=== PATIENT | female | born 1980 | race Caucasian/White ===

== ENCOUNTER 2018-02-17 11:36 | Emergency (ER) | payer OTHER ==
[2018-02-17] MEDS ORDERED: HYDROcodone/Acetaminophen 10/325 mg Tablet ONE (11:58)
--- NOTE | 2018-02-17 12:18 | RAD ---
THREE VIEW LEFT ANKLE: Clinical history: Injury, pain. FINDINGS: Mortise is intact. There is focal soft tissue swelling in the lateral aspect of the left ankle. No di screte fracture is seen. There is a subtle area of sclerosis at the distal tibia which likely represe nts a bone island. IMPRESSION: Prominent focal soft tissue at the lateral left ankle without underlying fracture. Correlate clinical ly. As necessary, short term imaging follow up may be obtained to exclude an occult injury. POS: NIDHI
== END 2018-02-17 12:20 | disposition home or self-care (01) ==
LOC: ERS 11:36
DX: S93.401A Sprain of unspecified ligament of right ankle, initial encounter (principal); E10.9 Type 1 diabetes mellitus without complications; E03.9 Hypothyroidism, unspecified; F32.9 Major depressive disorder, single episode, unspecified; F17.200 Nicotine dependence, unspecified, uncomplicated; W17.2XXA Fall into hole, initial encounter

== ENCOUNTER 2019-02-18 01:10 | Observation (INO) | payer BC, OTHER ==
[2019-02-18 03:42] LABS: #Basophils 0.1 thou/uL (0.0-0.2); #Eosinphils 0.5 thou/uL (0.0-0.7); #Monocytes 1.1 thou/uL (0.11-0.59); #Neutrophils 9.8 thou/uL (1.40-6.50); %Basophils 0.7 % (0.0-1.0); %Lymphocytes 30.1 % (21.0-51.0); %Monocytes 6.9 % (0.0-10.0); %Neutrophils 59.3 % (42.0-75.0); Hemoglobin 12.4 g/dL (12.0-16.0); Mean Corpuscular Hemoglobin 28.3 pg (27.0-31.0); Mean Corpuscular Volume 85.7 fL (78.0-98.0); Mean Platelet Volume 10.1 fL (7.4-10.4); Platelet Count 258 thou/uL (130-400); Red Blood Cell (RBC) Count 4.39 mill/uL (4.20-5.40); White Blood Cell (WBC) Count 16.5 thou/uL (4.8-10.8)
[2019-02-18 04:02] LABS: ALT (SGPT) 14 U/L (8-55); AST (SGOT) 14 U/L (5-34); Albumin 4.1 g/dL (3.5-5.0); Alkaline Phosphatase 84 U/L (40-150); Anion Gap 14 mmol/L (10-20); BUN (Urea Nitrogen) 12 mg/dL (7.0-18.7); Bilirubin, Total 0.3 mg/dL (0.2-1.2); Calc. Creatinine Clearance 0 mL/min (70-130); Calcium 9.2 mg/dL (7.8-10.44); Carbon Dioxide 20 mmol/L (22-29); Chloride 105 mmol/L (98-107); Estimated GFR-MDRD Greater than 90; Globulin 3.3 g/dL (2.4-3.5); Glucose 124 mg/dL (70-105); Potassium 3.8 mmol/L (3.5-5.1); Protein, Total 7.4 g/dL (6.0-8.3); Sodium 135 mmol/L (136-145)
[2019-02-18 04:05] LABS: Bilirubin Negative (Negative); Blood, Urine Negative (Negative); Clarity CLEAR (Clear); Glucose, Urine (Dipstick) Negative (Negative); Leukocyte Negative (Negative); Nitrite Negative (Negative); Protein, Urine (Dipstick) Negative (Neg-Trace); Specific Gravity, Urine 1.004 (1.002-1.036); Urobilinogen 0.2 mg/dL (0.2-1.0)
--- NOTE | 2019-02-18 05:35 | PDOC.FPRHP ---
- History of Present Illness Chief Complaint: abd pain History of Present Illness: 38 yo F with PMH of DM presents for abd pain and skin rash. 4 days ago, pt noticed a "pimple" on her abdomen that she tried to "pop," was unable to remove any fluid. The spot grew and her pain worsened, and now she has a rash on her abdomen. Reports fever today of 100.5. Patient reports she has been sitting in the tub and drinking a lot of energy drinks for work, and that she has not been drinking enough water. Reports headache earlier that has resolved, generalized weakness, and occasional constipation. Reports reflux symptoms, and an external hemorrhoid that occasionally bleeds. In ED, pt was tachycardic. Febrile at home. WBC elevated. Vanc, ceftriaxone, 1 L NS. Bl/u cx. UA neg. Bedside I&D performed, drain in place. Morphine, toradol. - Allergies/Adverse Reactions Allergies Allergy/AdvReac Type Severity Reaction Status Date / Time No Known Allergies Allergy Verified 04/03/15 15:55 - Home Medications Medication Instructions Recorded Confirmed Type Insulin Glargine,Hum.Rec.Anlog 40 unit SQ BID 04/03/15 02/18/19 History [Lantus Solostar] Insulin Regular [HumuLIN R Vial] 0 units SC ASDIR 04/03/15 02/18/19 History Levothyroxine Sodium 25 mcg PO DAILY 04/03/15 02/18/19 History Insulin Glargine,Hum.Rec.Anlog 40 unit SQ BID #0 pen 04/04/15 02/18/19 Rx [Lantus Solostar] metFORMIN [Glucophage] 500 mg PO QAM-WM #0 tab 04/04/15 02/18/19 Rx - History PMHx: DM2, hypothyroid, depression, GERD PSHx: tubal ligation, wisdom teeth, cholecystectomy, CSx1 FHx: no reported sick contacts Social: <1 drink/week, +marijuana use, 1 cig/week - Review of Systems General: reports: fever/chills, fatigue Eyes: denies: eye pain, vision changes ENT: denies: nasal congestion, rhinorrhea Respiratory: denies: cough, congestion, shortness of breath Cardiovascular: denies: chest pain, palpitation, edema Gastrointestinal: reports: constipation. denies: nausea, vomiting, diarrhea, abdominal pain, GI bleeding Genitourinary: denies: dysuria, other (hematuria) Skin: reports: rashes, lesions (abdomen) Musculoskeletal: reports: pain (legs bilat), tenderness Neurological: reports: weakness (generalized). denies: syncope, seizure Psychological: reports: anxiety, depression - Vital signs BP: [144/88] HR: [99] RR: [18] Tmax: [101.5] Pox: [99]% on [RA] Wt: [129 kg] - Physical Exam Constitutional: NAD, awake, alert and oriented HEENT: normocephalic and atraumatic, PERRLA, EOMI, conjunctiva clear, MMM, oropharynx clear Neck: supple, no LAD Heart: RRR, normal S1/S2, no murmurs/rubs/gallops, pulses present Lungs: CTAB, no respiratory distress, good air movement, no rales/rhonchi, no wheezing Abdomen: soft, bowel sounds present, other (approx 20 cm by 10 cm erythematous rash over abdomen, with induration of about 4x3 cm s/p incision and drainage with drain in place) Musculoskeletal: normal structure, normal tone Neurological: no focal deficit, CN II-XII intact Skin: other (see abde) Heme/Lymphatic: no unusual bruising or bleeding Psychiatric: normal mood and affect, good judgment and insight, intact recent and remote memory FMR H&P: Results - Labs Result Diagrams: 02/18/19 03:23 02/18/19 03:23 Lab results: WBC 16.5 thou/uL (4.8-10.8) H 02/18/19 03:23 Hgb 12.4 g/dL (12.0-16.0) 02/18/19 03:23 Hct 37.6 % (36.0-47.0) 02/18/19 03:23 MCV 85.7 fL (78.0-98.0) 02/18/19 03:23 Plt Count 258 thou/uL (130-400) 02/18/19 03:23 Neutrophils % 59.3 % (42.0-75.0) 02/18/19 03:23 Sodium 135 mmol/L (136-145) L 02/18/19 03:23 Potassium 3.8 mmol/L (3.5-5.1) 02/18/19 03:23 Chloride 105 mmol/L (98-107) 02/18/19 03:23 Carbon Dioxide 20 mmol/L (22-29) L 02/18/19 03:23 BUN 12 mg/dL (7.0-18.7) 02/18/19 03:23 Creatinine 0.70 mg/dL (0.6-1.1) 02/18/19 03:23 Glucose 124 mg/dL (70-105) H 02/18/19 03:23 Calcium 9.2 mg/dL (7.8-10.44) 02/18/19 03:23 Total Bilirubin 0.3 mg/dL (0.2-1.2) 02/18/19 03:23 AST 14 U/L (5-34) 02/18/19 03:23 ALT 14 U/L (8-55) 02/18/19 03:23 Alkaline Phosphatase 84 U/L (40-150) 02/18/19 03:23 Serum Total Protein 7.4 g/dL (6.0-8.3) 02/18/19 03:23 Albumin 4.1 g/dL (3.5-5.0) 02/18/19 03:23 Urine Ketones Negative mg/dL (Negative) 02/18/19 03:45 Urine Blood Negative (Negative) 02/18/19 03:45 Urine Nitrite Negative (Negative) 02/18/19 03:45 Ur Leukocyte Esterase Negative (Negative) 02/18/19 03:45 FMR H&P: A/P - Problem List (1) Sepsis Current Visit: Yes Status: Acute Code(s): A41.9 - SEPSIS, UNSPECIFIED ORGANISM (2) Abscess Current Visit: Yes Status: Acute Code(s): L02.91 - CUTANEOUS ABSCESS, UNSPECIFIED (3) Cellulitis Current Visit: Yes Status: Acute Code(s): L03.90 - CELLULITIS, UNSPECIFIED (4) GERD (gastroesophageal reflux disease) Current Visit: Yes Status: Chronic Code(s): K21.9 - GASTRO-ESOPHAGEAL REFLUX DISEASE WITHOUT ESOPHAGITIS (5) Hypothyroidism Current Visit: No Status: Chronic Code(s): E03.9 - HYPOTHYROIDISM, UNSPECIFIED (6) Type 2 diabetes mellitus Current Visit: No Status: Chronic (7) Tobacco abuse Current Visit: Yes Status: Chronic Code(s): Z72.0 - TOBACCO USE (8) Marijuana abuse Current Visit: Yes Status: Chronic Code(s): F12.10 - CANNABIS ABUSE, UNCOMPLICATED - Plan Sepsis 2/2 Abdominal Abscess and Cellulitis -Over abdomen, worsening for past 4 days -S/p I&D 02/18, sent for cx -s/p vanc and rocephin, continue Vanc and Zosyn -Bl cx, ux pending. UA neg. -s/p 3 L NS, MIVF @ 150 NS DM2 -Hyperglycemia protocol -Continue home novolin 70/30 -BHB wnl, no anion gap; not in DKA Hypothyroid -unknown home dose, okay to hold for brief hospital stay Depression -unknown home dose, ask pt if she can call home to get correct dose Marijuana abuse -behavioral school counselors cessation, aware Tobacco abuse -behavioral school counselors cessation, aware Dispo: admit to medical Diet: CC DVT ppx: lovenox GI ppx: famotidine PCP: TAMP Code:FULL FMR H&P: Upper Level - Pertinent history Pt is a 38 y/o F with DM who presents for abdominal wound. States she had a bump on her belly since Tue and she tried to pop and it became more red as the day went along. Not improving. Associated dehydration, diabetic neuropathy pain in her feet, and fatigue. In ED, she is standing and denies pain. S/p 1L IVF in ED and Vancomyicn and Rocephin have been given. Abscess drained serosanguious fluid and purulent drainage. - Pertinent findings GEN: NAD, appears well ENT: MM dry, cap refill <2sec RESP: Lungs CTAB, no wheezes CARDIO: RRR, NO MRG SKIN: abscess with bandage overlying and blood on bandage. Purulence seen. Outline of erythema visualized but erythema already resolved. Abd: No R/G, morbidly obese - Plan Date/Time: 02/18/19 4735 Ramses Cort[place], have evaluated this patient and agree with findings/plan as outlined by credit intern resident. Pertinent changes/additions are listed here. 1. Abscess with Surrounding Cellulitis - Mildy tachycardic with leukocytosis. Improving with IVF 30ml/kg. On Vanc and Pip/Tazo. Meets SIRS criteria with tachycardia and fever, but improving VS. Continue wound care and paking of wound. 2. DMT2 - Uncontrolled outpatient. Will resume home dosing and SSI. Will need close control for proper wound healing. 3. GERD - Dietary control. H2 manjinder PRN. Addendum - Attending - Attending Attestation Date/Time: 02/18/19 1216 I personally evaluated the patient and discussed the management with Dr. Opal Wilson /Albino and H&P repeated by me. I agree with the History, Examination, Assessment and Plan documented above with any addition or exceptions noted below. 38 y/o F with PMH of uncontrolled T2DM who presents with right lower abdominal pain, erythema consisted with cellulitis and abscess. S/P I&D in ER and cx sent. On Vanc/Zosyn to cover MRSA and pseudomonas- deescalate as cultures return. Tight control of sugars with home insulin + SSI.
[2019-02-18] MEDS ORDERED: Acetaminophen 500 MG TAB PO PRN (06:35)
[2019-02-18] MEDS ORDERED: Dextrose 50% Abboject 50 ML SYRINGE SLOW IVP PRN (06:41)
[2019-02-18] MEDS ORDERED: Senokot S 8.6-50 MG TAB PO PRN (06:41)
[2019-02-18] MEDS ORDERED: Enoxaparin Sodium 40 MG/0.4 ML SYRINGE SC SCH (06:41)
[2019-02-18] MEDS ORDERED: Bisacodyl 5 MG TAB PO PRN (06:41)
[2019-02-18] MEDS ORDERED: Dextrose 5% in Water 1,000 ML IV PRN (06:41)
[2019-02-18] MEDS: Sodium Chloride 0.9% 1,000 ML IV SCH ×5 (06:47→22:05)
[2019-02-18 07:00] VITALS: BMI 46.7
[2019-02-18] MEDS: Piperacillin/Tazobactam 4.5 GM in Sodium Chloride 0.9% 100 ML IVPB SCH ×4 (07:57→23:57)
[2019-02-18] MEDS ORDERED: VANCOMYCIN IVPB PRN (08:10)
[2019-02-18] MEDS: Famotidine 20 MG TAB PO SCH ×2 (09:11→19:41)
[2019-02-18] MEDS: HumuLIN 70/30 (300 UNITS/3 ML VIAL) SC SCH ×2 (10:02→16:41)
[2019-02-18] MEDS: Ibuprofen 800 MG TAB PO PRN ×2 (10:02→17:12)
[2019-02-18] MEDS: HumaLOG 300 UNITS/3 ML VIAL SC PRN (12:53)
[2019-02-18] MEDS ORDERED: Vancomycin HCl 1.25 GM in Sodium Chloride 0.9% 250 ML 300 ML IVPB SCH (21:00)
[2019-02-18] MEDS ORDERED: Ketorolac Tromethamine 30 MG/ML VIAL IVP SCH (21:30)
[2019-02-19] MEDS: Ibuprofen 800 MG TAB PO PRN ×2 (00:48→20:30)
[2019-02-19] MEDS ORDERED: Melatonin 3 MG TAB PO PRN (02:01)
[2019-02-19] MEDS ORDERED: traMADol HCl 50 MG TAB PO SCH (02:15)
[2019-02-19] MEDS: Sodium Chloride 0.9% 1,000 ML IV SCH ×5 (03:58→22:00)
[2019-02-19] MEDS: Ondansetron PF 4 MG/2 ML Vial IVP PRN ×2 (04:59→10:23)
[2019-02-19] MEDS: Piperacillin/Tazobactam 4.5 GM in Sodium Chloride 0.9% 100 ML IVPB SCH ×2 (06:11→14:39)
[2019-02-19 06:36] LABS: #Basophils 0.1 thou/uL (0.0-0.2); #Eosinphils 0.2 thou/uL (0.0-0.7); #Lymphocytes 1.6 thou/uL (1.20-3.40); #Monocytes 0.6 thou/uL (0.11-0.59); #Neutrophils 7.9 thou/uL (1.40-6.50); %Basophils 0.5 % (0.0-1.0); %Eosinophils 2.4 % (0.0-10.0); %Lymphocytes 15.3 % (21.0-51.0); %Monocytes 5.9 % (0.0-10.0); %Neutrophils 75.9 % (42.0-75.0); Hemoglobin 11.5 g/dL (12.0-16.0); Mean Corpuscular HGB CONC 31.9 g/dL (32.0-36.0); Mean Corpuscular Hemoglobin 28.1 pg (27.0-31.0); Mean Corpuscular Volume 88.2 fL (78.0-98.0); Mean Platelet Volume 10.4 fL (7.4-10.4); Platelet Count 211 thou/uL (130-400); RBC Distribution Width 13.2 % (11.5-14.5); Red Blood Cell (RBC) Count 4.08 mill/uL (4.20-5.40); White Blood Cell (WBC) Count 10.4 thou/uL (4.8-10.8)
[2019-02-19 06:42] LABS: Anion Gap 10 mmol/L (10-20); BUN (Urea Nitrogen) 9 mg/dL (7.0-18.7); Calc. Creatinine Clearance 224 mL/min (70-130); Calcium 8.4 mg/dL (7.8-10.44); Carbon Dioxide 24 mmol/L (22-29); Chloride 110 mmol/L (98-107); Estimated GFR-MDRD Greater than 90; Glucose 87 mg/dL (70-105); Potassium 3.8 mmol/L (3.5-5.1); Sodium 140 mmol/L (136-145)
[2019-02-19 07:46] LABS: Hemoglobin A1c 6.8 % (4.0-6.0)
[2019-02-19] MEDS ORDERED: Ondansetron ORAL SOLN. 4 MG/5 ML UDCUP PO PRN (08:49)
[2019-02-19] MEDS ORDERED: diphenhydrAMINE 25 MG CAP PO PRN (08:50)
--- NOTE | 2019-02-19 08:53 | PDOC.FM ---
- Subjective Subjective: Ms Farfan unfortunately had a horrible night. She reports she was dry heaving and had diarrhea. She didnt sleep at all, and is feeling exhausting causing her to feel very upset and tearful. Had hypoglycemic episode last night of BG 37. Requesting medicine to be able to sleep tonight. Erythema improving. Says her period should be coming soon and she is starting to cramp. Says she feel dehydrated. - Objective Vital Signs & Weight: Vital Signs (12 hours) Temp Pulse Resp BP Pulse Ox 02/19/19 07:57 97.8 F 66 18 103/68 100 02/19/19 04:00 97.5 F L 77 18 96 02/19/19 00:00 98.3 F 70 18 103/56 L 99 Weight Weight 129.274 kg I&O: 02/18/19 02/19/19 02/20/19 06:59 06:59 06:59 Intake Total 3140 Balance 3140 Result Diagrams: 02/19/19 05:33 02/19/19 05:33 Phys Exam - Physical Examination tearful, anxious Respiratory: no wheezing, clear to auscultation bilateral Cardiovascular: RRR, no significant murmur Gastrointestinal: soft, no distention, positive bowel sounds wound dressing clean, dry, intact, no erythema visualized Neurological: non-focal Skin: normal turgor Dx/Plan (1) Abscess Code(s): L02.91 - CUTANEOUS ABSCESS, UNSPECIFIED Status: Acute (2) Cellulitis Code(s): L03.90 - CELLULITIS, UNSPECIFIED Status: Acute (3) Sepsis Code(s): A41.9 - SEPSIS, UNSPECIFIED ORGANISM Status: Acute (4) GERD (gastroesophageal reflux disease) Code(s): K21.9 - GASTRO-ESOPHAGEAL REFLUX DISEASE WITHOUT ESOPHAGITIS Status: Chronic (5) Hyperglycemia due to type 2 diabetes mellitus Code(s): E11.65 - TYPE 2 DIABETES MELLITUS WITH HYPERGLYCEMIA Status: Acute (6) PCOS (polycystic ovarian syndrome) Code(s): E28.2 - POLYCYSTIC OVARIAN SYNDROME Status: Acute (7) Hypothyroidism Code(s): E03.9 - HYPOTHYROIDISM, UNSPECIFIED Status: Chronic - Plan Plan: Sepsis 2/2 Abdominal Abscess and Cellulitis, improving -S/p I&D 02/18, sent for cx - growing mixed skin dhaval -s/p vanc and rocephin, continue Vanc and Zosyn (02/18) - UA neg. - Continue NS @ 150 NS DM2 -Hyperglycemia protocol - will check A1c - continue home metformin -Continue novolin 70/30. Decrease nighttime dose to 35 units since hypoglycemic episode last night. Hypothyroid -unknown home dose - will check TSH Depression -unknown home dose Marijuana abuse -breastfeeding peer counselor cessation, aware Tobacco abuse -breastfeeding peer counselor cessation, aware Diet: CC DVT ppx: lovenox GI ppx: famotidine PCP: KATHY Code:FULL Addendum - Attending - Attending Attestation Date/Time: 02/19/19 4754 I personally evaluated the patient and discussed the management with Dr. Luciano I agree with the History, Examination, Assessment and Plan documented above with any addition or exceptions noted below. Cellulitis/abscess of RLQ improved- continue wound care. Culture thus far growing out skin dhaval. If cx does not grow out specific organism by end of day will transition to IV clindamycin and observe for the next 24 hours and then transition to oral clindamycin. DM- a1c at goal. Hypoglycemia last night as portions smaller than her home diet and n/v. Will back off insulin a bit. Expect d/c in next 1-2 days pending course.
[2019-02-19] MEDS: HumuLIN 70/30 (300 UNITS/3 ML VIAL) SC SCH (09:19)
[2019-02-19] MEDS: Enoxaparin Sodium 40 MG/0.4 ML SYRINGE SC SCH (09:22)
[2019-02-19] MEDS: Lactinex Tablet PO SCH (09:33)
[2019-02-19] MEDS: Famotidine 20 MG TAB PO SCH ×2 (09:33→20:30)
[2019-02-19] MEDS: HumaLOG 300 UNITS/3 ML VIAL SC PRN ×2 (12:37→20:35)
[2019-02-19 16:21] LABS: Free T4 (Free Thyroxine) 0.71 ng/dL (0.70-1.48)
[2019-02-19] MEDS ORDERED: HumuLIN 70/30 (300 UNITS/3 ML VIAL) SC SCH (17:00)
[2019-02-19] MEDS ORDERED: Cyclobenzaprine 10 MG TAB PO PRN (17:44)
[2019-02-19] MEDS ORDERED: Cyclobenzaprine 10 MG TAB PO SCH (17:45)
[2019-02-19] MEDS ORDERED: Vancomycin HCl 1.5 GM in Sodium Chloride 0.9% 250 ML 300 ML IVPB SCH (21:00)
[2019-02-19] MEDS: Clindamycin/D5W 600 MG in Premix Bag 1 BAG IVPB SCH (21:51)
[2019-02-20] MEDS: Sodium Chloride 0.9% 1,000 ML IV SCH (04:36)
[2019-02-20] MEDS: Clindamycin/D5W 600 MG in Premix Bag 1 BAG IVPB SCH (05:57)
[2019-02-20] MEDS ORDERED: Levothyroxine Sodium 100 MCG TAB PO SCH (06:00)
[2019-02-20 06:15] LABS: #Basophils 0.1 thou/uL (0.0-0.2); #Eosinphils 0.4 thou/uL (0.0-0.7); #Monocytes 0.7 thou/uL (0.11-0.59); #Neutrophils 4.2 thou/uL (1.40-6.50); %Basophils 0.8 % (0.0-1.0); %Eosinophils 4.5 % (0.0-10.0); %Lymphocytes 42.2 % (21.0-51.0); %Monocytes 7.8 % (0.0-10.0); %Neutrophils 44.8 % (42.0-75.0); Hemoglobin 10.5 g/dL (12.0-16.0); Mean Corpuscular HGB CONC 32.3 g/dL (32.0-36.0); Mean Corpuscular Hemoglobin 28.4 pg (27.0-31.0); Mean Platelet Volume 10.2 fL (7.4-10.4); Platelet Count 229 thou/uL (130-400); RBC Distribution Width 13.2 % (11.5-14.5); Red Blood Cell (RBC) Count 3.71 mill/uL (4.20-5.40); White Blood Cell (WBC) Count 9.5 thou/uL (4.8-10.8)
[2019-02-20 06:29] LABS: Anion Gap 10 mmol/L (10-20); BUN (Urea Nitrogen) 5 mg/dL (7.0-18.7); Calc. Creatinine Clearance 214 mL/min (70-130); Calcium 8.4 mg/dL (7.8-10.44); Carbon Dioxide 22 mmol/L (22-29); Chloride 112 mmol/L (98-107); Estimated GFR-MDRD 89; Glucose 117 mg/dL (70-105); Potassium 4.1 mmol/L (3.5-5.1); Sodium 140 mmol/L (136-145)
--- NOTE | 2019-02-20 07:00 | PDOC.FM ---
- Subjective Subjective: Ms. Farfan slept better last night. Cramping menstrual pain, N/V has resolved. Feeling like she could return home. - Objective Vital Signs & Weight: Vital Signs (12 hours) Temp Pulse Resp BP BP Pulse Ox 02/20/19 04:00 98.1 F 63 18 134/68 98 02/20/19 00:00 98.1 F 69 18 80/46 L 96 02/19/19 20:00 98.4 F 79 18 96/65 100 02/19/19 19:46 98.4 F 79 18 96/65 100 Weight Admit Weight 129.274 kg Weight 129.274 kg I&O: 02/18/19 02/19/19 02/20/19 06:59 06:59 06:59 Intake Total 3140 2731 Balance 3140 2731 Result Diagrams: 02/20/19 05:38 02/20/19 05:38 Phys Exam - Physical Examination Constitutional: NAD Respiratory: no wheezing, clear to auscultation bilateral Cardiovascular: RRR, no significant murmur Gastrointestinal: soft, positive bowel sounds Musculoskeletal: no edema Neurological: non-focal Dx/Plan (1) Abscess Code(s): L02.91 - CUTANEOUS ABSCESS, UNSPECIFIED Status: Acute (2) Cellulitis Code(s): L03.90 - CELLULITIS, UNSPECIFIED Status: Acute (3) Sepsis Code(s): A41.9 - SEPSIS, UNSPECIFIED ORGANISM Status: Acute (4) GERD (gastroesophageal reflux disease) Code(s): K21.9 - GASTRO-ESOPHAGEAL REFLUX DISEASE WITHOUT ESOPHAGITIS Status: Chronic (5) Hyperglycemia due to type 2 diabetes mellitus Code(s): E11.65 - TYPE 2 DIABETES MELLITUS WITH HYPERGLYCEMIA Status: Acute (6) PCOS (polycystic ovarian syndrome) Code(s): E28.2 - POLYCYSTIC OVARIAN SYNDROME Status: Acute (7) Hypothyroidism Code(s): E03.9 - HYPOTHYROIDISM, UNSPECIFIED Status: Chronic - Plan Plan: Sepsis 2/2 Abdominal Abscess and Cellulitis, improving -S/p I&D 02/18, sent for cx - growing mixed skin dhaval -s/p vanc and rocephin, Vanc and Zosyn (02/18-), transitioned to clindamycin () in preparation for transition to PO - UA neg. - D/c NS @ 150 NS DM2 - Hyperglycemia protocol - A1c 6.8 - continue home metformin - Continue novolin 70/30. Decrease nighttime dose to 35 units since hypoglycemic episode last night and this did not occur again Hypothyroid -home dose 88, increased to 100 mcg daily - will check TSH 15 Depression -unknown home med Marijuana abuse -area counselor cessation, aware Tobacco abuse -area counselor cessation, aware Diet: CC DVT ppx: lovenox GI ppx: famotidine PCP: KATHY Code:FULL Dispo: possible discharge today Addendum - Attending - Attending Attestation Date/Time: 02/20/19 9720 I personally evaluated the patient and discussed the management with Dr. Luciano. I agree with the History, Examination, Assessment and Plan documented above with any addition or exceptions noted below. Cellulitis much improved- no need for packing. home today on clindamycin and follow-up next week.
[2019-02-20] MEDS ORDERED: metFORMIN 500 MG TAB PO SCH (08:00)
[2019-02-20] MEDS ORDERED: HumuLIN 70/30 (300 UNITS/3 ML VIAL) SC SCH (08:00)
[2019-02-20] MEDS: Lactinex Tablet PO SCH (08:10)
[2019-02-20] MEDS: Enoxaparin Sodium 40 MG/0.4 ML SYRINGE SC SCH (08:11)
[2019-02-20] MEDS: Famotidine 20 MG TAB PO SCH (08:11)
[2019-02-20 12:37] VITALS: BP 119/65; TEMP 98
--- NOTE | 2019-02-21 10:22 | DIS ---
DATE OF ADMISSION: 02/18/2019 DATE OF DISCHARGE: 02/20/2019 RESIDENT: Romy Luciano DO. ADMITTING ATTENDING: Nathalie Tobin MD. DISCHARGE ATTENDING: Nathalie Tobin MD. CONSULTS: Wound Care. PROCEDURES: None. PRIMARY DIAGNOSES: 1. Sepsis secondary to abdominal abscess and cellulitis. 2. Type 2 diabetes. 3. Hypothyroid. 4. Depression. 5. Marijuana abuse. 6. Tobacco abuse. DISCHARGE MEDICATIONS: 1. Clindamycin 300 mg p.o. t.i.d. for 7 days, #21. 2. Synthroid 100 mcg p.o. daily. 3. Floranex 1 tablet p.o. daily. 4. Humulin 70/30 40 units subcutaneous at 8 a.m. 5. Humulin 70/30 35 units subcutaneous at 5 p.m. 6. Metformin 500 mg p.o. q.a.m. DISCONTINUED MEDICATIONS: 1. Insulin glargine 40 units subcu b.i.d. 2. Levothyroxine 25 mcg p.o. daily. HISTORY OF PRESENT ILLNESS: A 38-year-old female with past medical history of diabetes, presented for abdominal pain and rash. In the emergency department, the patient was started on vanc and ceftriaxone, fluids, and a bedside incision and drainage of lesion was performed with a drain in place. The patient was given pain medication during this time as well. She was admitted and wound Care saw her. The patient's cellulitis improved greatly throughout hospitalization and there was no erythema at the time of discharge. The patient was transitioned to IV clindamycin during hospitalization and then to p.o. clindamycin at the time of discharge to complete course. In regard to diabetes, her A1c was checked and was 6.8. She did have hypoglycemic episode and her nighttime dose of insulin was decreased to 35 units. In regard to hypothyroidism, the patient reported that her home dose was 88 mcg that she had been taking consistently. TSH was 15, so Synthroid dose was increased to 100 mcg daily. Recommend follow up on this in the outpatient setting. DISPOSITION: Stable. DISCHARGE INSTRUCTIONS: 1. Location: Home. 2. Diet: Diabetic. 3. Activity: As tolerated. 4. Followup: Follow up with PCP at [facility] within 7 days. Job ID: [id number]
== END 2019-02-20 12:39 | disposition home or self-care (01) ==
LOC: ERS 01:10 → T4-A 05:33
PROVIDERS: ADMIT Family Medicine; ATTEND Family Medicine
DX: A41.9 Sepsis, unspecified organism (principal); L02.211 Cutaneous abscess of abdominal wall; R21 Rash and other nonspecific skin eruption; E11.9 Type 2 diabetes mellitus without complications; E03.9 Hypothyroidism, unspecified; F32.9 Major depressive disorder, single episode, unspecified; K21.9 Gastro-esophageal reflux disease without esophagitis; Z79.4 Long term (current) use of insulin; Z79.899 Other long term (current) drug therapy
CPT/HCPCS: 10060; 36415; 36416; 80048; 80053; 80202; 81003; 82010; 83036; 84145; 84439; 84443; 84481; 85025; 87040; 87070; 87205; 87324; 87449; 93005; 96361; 96365; 96366; 96367; 96372; 96375; 96376; G0378; J1650; J1815; J1885; J2405; J2543; J3370; J3490; J7050

== ENCOUNTER 2020-07-11 08:50 | Outpatient (CLI) | payer BC ==
--- NOTE | 2020-07-11 09:40 | MMO ---
Bilateral MAMMO Bilat Diag DDI+YE. CLINICAL HISTORY: Patient is 39 years old and is seen for diagnostic exam and non-bloody discharge in both breasts. The patient has the following family history of breast cancer: aunt. The patient has no personal history of cancer. VIEWS: The views performed were: bilateral craniocaudal with tomosynthesis; bilateral mediolateral oblique with tomosynthesis; and bilateral mediolateral with tomosynthesis. FILMS COMPARED: The present examination has been compared to a prior imaging study performed at [facility] on 07/11/2020. This study has been interpreted with the assistance of computer-aided detection. MAMMOGRAM FINDINGS: There are scattered fibroglandular densities. There are no suspicious masses, suspicious calcifications, or new areas of architectural distortion. IMPRESSION: THERE IS NO MAMMOGRAPHIC EVIDENCE OF MALIGNANCY. A ROUTINE FOLLOW-UP MAMMOGRAM AT AGE 42 IS RECOMMENDED. THE RESULTS OF THIS EXAM WERE SENT TO THE PATIENT. ACR BI-RADS Category 1 - Negative MAMMOGRAPHY NOTE: 1. A negative mammogram report should not delay a biopsy if a dominant of clinically suspicious mass is present. 2. Approximately 10% to 15% of breast cancers are not detected by mammography. 3. Adenosis and dense breasts may obscure an underlying neoplasm. Reported by: CHRISS ANDREW MD Electonically Signed: [id number]
--- NOTE | 2020-07-11 09:41 | ULT ---
US Breast Limited Lt: 07/11/2020 12:00 AM CLINICAL INDICATION: Palpable breast mass per the ordering physician in the upper outer left breast. COMPARISON: None. TECHNIQUE: Multiplanar grayscale and color Doppler images were obtained of the breast. FINDINGS: Normal appearing parenchyma is seen. No suspicious mass is seen. No suspicious shadowing is seen. A tiny 4 mm anechoic cyst is seen 6 cm from the nipple. IMPRESSION: BI-RADS Category 2-benign findings.
--- NOTE | 2020-07-11 10:43 | ULT ---
TRANSABDOMINAL AND TRANSVAGINAL PELVIC ULTRASOUND WITH GRAYSCALE, COLOR-FLOW AND SPECTRAL DOPPLER DREAD GING: HISTORY:Dysmenorrhea FINDINGS: Uterus: 8 x 4.6 x 4.5cm Endometrium: 2 mm in thickness Right ovary: Not seen Left ovary: 3 x 2.2 x 2.3 cm No uterine mass or endometrial fluid or intrauterine gestational sac is seen. Flow is demonstrated to the left ovary. No adnexal mass or free fluid in the cul-de-sac is identified. IMPRESSION: Nonvisualization of the right ovary, otherwise unremarkable exam.
--- NOTE | 2020-07-11 10:52 | ULT ---
Exam: Thyroid ultrasound HISTORY: Hypothyroidism. FINDINGS: Diffuse heterogeneity throughout the thyroid gland. No discrete solid or cystic masses. Right thyroid lobe: 5.7 x 2.5 x 2.1 cm Left thyroid lobe: 5.4 x 1.6 x 1.6 cm Thyroid isthmus: 0.9 cm Posterior to the midportion of the left thyroid lobe there is a hypoechoic focus, ill-defined, measur ing 1 cm. IMPRESSION: 1. Heterogeneous thyroid gland without discrete mass. 2. Hypoechoic focus posterior to the midportion of the left thyroid lobe. Better interrogation with p ostcontrast soft tissue neck CT is recommended. Transcribed Date/Time: 07/11/2020 11:17 AM
== END 2020-07-11 08:51 | disposition home or self-care (01) ==
LOC: BICMAMMO 08:50
PROVIDERS: ATTEND Family Medicine
DX: N64.52 Nipple discharge (principal); E03.9 Hypothyroidism, unspecified; N94.6 Dysmenorrhea, unspecified; R94.6 Abnormal results of thyroid function studies; N60.02 Solitary cyst of left breast
CPT/HCPCS: 76536; 76856; 77066; G0279

== ENCOUNTER 2020-08-12 07:24 | Outpatient (CLI) | payer BC ==
--- NOTE | 2020-08-12 08:47 | CT ---
CT neck with contrast: 08/12/2020 HISTORY: 39-year-old female whose thyroid ultrasound showed a hypoechoic lesion posterior to the mid pole of t he left lobe of the thyroid gland. FINDINGS: The pyramidal lobe is prominent. There is a prominent pyramidal lobe of the thyroid gland, with super ior tip abutting the undersurface of the hyoid bone. There is a long, broad posterior extension of the upper and mid poles of the right lobe of the thyroid gland posterior to the right cricopharyngeus musculature and anteromedial to the right lumbar scoliotic muscle, extending to the left of midline slightly in the retropharyngeal space. At the lower pole of the contralateral left lobe of th e thyroid gland, there is a posterior extension of thyroid tissue that broadly abuts the left side of the esophagus and abuts the left lumbar scoliotic muscle. It is doubtful that this corresponds to the hypoechoic nodule found on the recent thyroid ultrasound. Otherwise, no mass is identified on this CT that would definitely account for the finding on the ultrasound. The larynx, trachea, and aortic arch, are normal. Adenoids, lingual tonsil, and palatine tonsils, are symmetrically prominent. The parotid, parapharyngeal, perivertebral, posterior cervical, submandibular, and customer contact specialist, spaces , are essentially normal. No cervical lymphadenopathy. IMPRESSION: 1.) Thyroid gland size is at the upper limits of normal. 2) no lesion is found that would correspond to the finding mentioned on the ultrasound for which this CT was recommended.
[2020-08-12] MEDS ORDERED: Iopamidol-370 76% 500 ML 1 ML ONE (13:26)
== END 2020-08-12 07:25 | disposition home or self-care (01) ==
LOC: BICCT 07:24
PROVIDERS: ATTEND Family Medicine
DX: E04.1 Nontoxic single thyroid nodule (principal)
CPT/HCPCS: 70491; Q9967

== ENCOUNTER 2020-10-07 10:08 | Emergency (ER) | payer BC ==
--- NOTE | 2020-10-07 10:56 | RAD ---
CERVICAL SPINE 3 VIEWS: Date: 10/07/2020 HISTORY: Left shoulder pain. FINDINGS: Cervical vertebra maintain normal height and alignment. Disc spaces are normally maintained. Very mil d degenerative spurring is seen from the cervical vertebra. IMPRESSION: Unremarkable cervical spine. Very mild degenerative change noted. POS: AGW
[2020-10-07] MEDS ORDERED: Dexamethasone 4 MG TAB ONE ×2 (11:07)
== END 2020-10-07 11:35 | disposition home or self-care (01) ==
LOC: ERS 10:08
DX: M50.30 Other cervical disc degeneration, unspecified cervical region (principal); E10.9 Type 1 diabetes mellitus without complications; E03.9 Hypothyroidism, unspecified; F17.290 Nicotine dependence, other tobacco product, uncomplicated; Z79.899 Other long term (current) drug therapy
CPT/HCPCS: 72040; J8540

== ENCOUNTER 2020-12-21 18:35 | Emergency (ER) | payer BC ==
[2020-12-21] MEDS ORDERED: HYDROcodone/Acetaminophen 10/325 mg Tablet ONE (19:19)
--- NOTE | 2020-12-21 20:10 | RAD ---
RIGHT ELBOW FOUR VIEWS: History: Injury from a fall. FINDINGS: There is a suggestion of a joint effusion. I cannot demonstrate an overt fracture or dislocation but suspect that occult osseous injury, particularly the radial head, or nonosseous injury. I would recom mend stabilization and short term follow up study in 5-7 days versus follow up non-emergent MRI. IMPRESSION: Evidence for joint effusion. No overt fracture although I suspect an occult osseous or non-osseous fr acture or injury to account for the joint effusion. Short term follow up in 5-7 days versus additiona l imaging is suggested. POS: RRE
== END 2020-12-21 19:35 | disposition home or self-care (01) ==
LOC: ERS 18:35
DX: S42.401A Unspecified fracture of lower end of right humerus, initial encounter for closed fracture (principal); E10.9 Type 1 diabetes mellitus without complications; E03.9 Hypothyroidism, unspecified; F17.200 Nicotine dependence, unspecified, uncomplicated; W00.0XXA Fall on same level due to ice and snow, initial encounter
CPT/HCPCS: 29505

== ENCOUNTER 2021-03-14 09:37 | Emergency (ER) | payer BC ==
[2021-03-14 10:09] LABS: #Basophils 0.1 thou/uL (0.0-0.2); #Eosinphils 0.2 thou/uL (0.0-0.7); #Lymphocytes 3.4 thou/uL (1.20-3.40); #Monocytes 0.6 thou/uL (0.11-0.59); #Neutrophils 7.6 thou/uL (1.40-6.50); %Basophils 0.9 % (0.0-1.0); %Eosinophils 1.7 % (0.0-10.0); %Lymphocytes 28.5 % (21.0-51.0); %Monocytes 4.6 % (0.0-10.0); %Neutrophils 64.2 % (42.0-75.0); Hemoglobin 14.2 g/dL (12.0-16.0); Mean Corpuscular HGB CONC 33.3 g/dL (32.0-36.0); Mean Corpuscular Hemoglobin 29.9 pg (27.0-31.0); Mean Corpuscular Volume 89.9 fL (78.0-98.0); Mean Platelet Volume 10.7 fL (7.4-10.4); Platelet Count 268 thou/uL (130-400); RBC Distribution Width 12.1 % (11.5-14.5); Red Blood Cell (RBC) Count 4.76 mill/uL (4.20-5.40); White Blood Cell (WBC) Count 11.9 thou/uL (4.8-10.8)
[2021-03-14 10:30] LABS: ALT (SGPT) 17 U/L (8-55); AST (SGOT) 18 U/L (5-34); Alkaline Phosphatase 87 U/L (40-110); Anion Gap 15 mmol/L (10-20); BUN (Urea Nitrogen) 10 mg/dL (7.0-18.7); Bilirubin, Total 0.7 mg/dL (0.2-1.2); Calc. Creatinine Clearance 0 mL/min (70-130); Calcium 9.9 mg/dL (7.8-10.44); Carbon Dioxide 21 mmol/L (22-29); Chloride 103 mmol/L (98-107); Globulin 3.3 g/dL (2.4-3.5); Glucose 307 mg/dL (70-105); Potassium 4.2 mmol/L (3.5-5.1); Protein, Total 7.3 g/dL (6.0-8.3); Sodium 135 mmol/L (136-145)
[2021-03-14] MEDS ORDERED: Ondansetron PF 4 MG/2 ML Vial ONE (11:07)
[2021-03-14] MEDS ORDERED: Ketorolac Tromethamine 30 MG/ML VIAL ONE (11:07)
[2021-03-14 12:41] LABS: Bacteria/HPF None Seen HPF (None Seen); Bilirubin Negative (Negative); Blood, Urine Negative (Negative); Clarity Clear (Clear); Glucose, Urine (Dipstick) 200 mg/dL (Negative); Ketone, Urine 150 mg/dL (Negative); Leukocyte Negative Leu/uL (Negative); Nitrite Negative (Negative); Protein, Urine (Dipstick) 50 mg/dL (Neg-Trace); RBC/HPF 0-3 HPF (0-3); Specific Gravity, Urine 1.032 (1.002-1.036); Squamous Epithelial 0-3 HPF (0-3); Urobilinogen Normal mg/dL (Less than 2); WBC/HPF 0-3 HPF (0-3); pH, Urine 7.5 (5.0-9.0)
== END 2021-03-14 13:15 | disposition home or self-care (01) ==
LOC: ERS 09:37
DX: E10.65 Type 1 diabetes mellitus with hyperglycemia (principal); E86.0 Dehydration; E03.9 Hypothyroidism, unspecified; D64.9 Anemia, unspecified; E28.2 Polycystic ovarian syndrome; F17.200 Nicotine dependence, unspecified, uncomplicated
CPT/HCPCS: 36415; 36416; 80053; 81003; 81015; 82010; 84443; 84484; 85025; 93005; 96374; 96375; J1885; J2405

== ENCOUNTER 2021-11-20 19:29 | Emergency (ER) | payer BC ==
[2021-11-21 17:22] LABS: SARS-CoV-2 PCR by NAA DETECTED (NotDetected)
== END 2021-11-20 20:27 | disposition home or self-care (01) ==
LOC: ERS 19:29
DX: U07.1 COVID-19 (principal); E78.5 Hyperlipidemia, unspecified; E10.9 Type 1 diabetes mellitus without complications; E03.9 Hypothyroidism, unspecified; F17.200 Nicotine dependence, unspecified, uncomplicated; Z79.84 Long term (current) use of oral hypoglycemic drugs; Z79.4 Long term (current) use of insulin; Z79.899 Other long term (current) drug therapy
CPT/HCPCS: 99283; U0003; U0005

== ENCOUNTER 2022-05-31 10:11 | Emergency (ER) | payer BC ==
[2022-05-31] MEDS ORDERED: Ketorolac Tromethamine 30 MG/ML VIAL ONE (11:29)
== END 2022-05-31 11:48 | disposition home or self-care (01) ==
LOC: ERS 10:11
DX: H60.92 Unspecified otitis externa, left ear (principal); E78.5 Hyperlipidemia, unspecified; E10.9 Type 1 diabetes mellitus without complications; E03.9 Hypothyroidism, unspecified; F17.200 Nicotine dependence, unspecified, uncomplicated; Z79.4 Long term (current) use of insulin; Z79.84 Long term (current) use of oral hypoglycemic drugs; Z79.899 Other long term (current) drug therapy
CPT/HCPCS: 96372; 99282; J1885

== ENCOUNTER 2023-02-04 11:46 | Outpatient (CLI) | payer BC | END 2023-02-04 11:47 | disposition home or self-care (01) | LOC: BICRAD 11:46 | PROVIDERS: ATTEND Student in an Organized Health Care Education/Training Program | DX: M47.22 Other spondylosis with radiculopathy, cervical region (principal) | CPT/HCPCS: 72040 ==

== ENCOUNTER 2023-07-26 17:51 | Emergency (ER) | payer BC ==
[2023-07-26 22:05] LABS: #Basophils 0.1 thou/uL (0.0-0.2); #Eosinphils 0.2 thou/uL (0.0-0.7); #Monocytes 0.8 thou/uL (0.11-0.59); #Neutrophils 7.6 thou/uL (1.40-6.50); %Basophils 0.6 % (0.0-1.0); %Eosinophils 1.5 % (0.0-10.0); %Lymphocytes 36.4 % (21.0-51.0); %Neutrophils 55.1 % (42.0-75.0); Hematocrit 42.7 % (36.0-47.0); Mean Corpuscular HGB CONC 32.8 g/dL (32.0-36.0); Mean Corpuscular Hemoglobin 29.1 pg (27.0-31.0); Mean Corpuscular Volume 88.8 fl (78.0-98.0); Mean Platelet Volume 12.7 fL (7.4-10.4); Platelet Count 289 10x3/uL (130-400); RBC Distribution Width 13.2 % (11.5-14.5); Red Blood Cell (RBC) Count 4.81 mill/uL (4.20-5.40); White Blood Cell (WBC) Count 13.8 10x3/uL (4.8-10.8)
[2023-07-26 22:31] LABS: ALT (SGPT) 21 U/L (8-55); AST (SGOT) 14 U/L (5-34); Albumin 4.1 g/dL (3.5-5.0); Alkaline Phosphatase 91 U/L (40-110); Anion Gap 12 mmol/L (10-20); BUN (Urea Nitrogen) 9 mg/dL (7.0-18.7); Bilirubin, Total 0.4 mg/dL (0.2-1.2); Calc. Creatinine Clearance 0 mL/min (70-130); Calcium 9.7 mg/dL (7.8-10.44); Carbon Dioxide 24 mmol/L (22-29); Chloride 101 mmol/L (98-107); Estimated GFR 90; Globulin 3.2 g/dL (2.4-3.5); Glucose 206 mg/dL (70-105); Potassium 4.2 mmol/L (3.5-5.1); Protein, Total 7.3 g/dL (6.0-8.3); Sodium 133 mmol/L (136-145)
== END 2023-07-26 22:30 | disposition home or self-care (01) ==
LOC: ERS 17:51
DX: N61.1 Abscess of the breast and nipple (principal); E11.9 Type 2 diabetes mellitus without complications; E66.9 Obesity, unspecified; E03.9 Hypothyroidism, unspecified
CPT/HCPCS: 36415; 80053; 85025

== ENCOUNTER 2024-04-20 07:18 | Emergency (ER) | payer BC ==
[2024-04-20] MEDS ORDERED: Morphine 4 MG/ML VIAL ONE (07:41)
[2024-04-20] MEDS ORDERED: Ondansetron PF 4 MG/2 ML Vial ONE (07:57)
[2024-04-20 08:11] LABS: #Basophils 0.06 10x3/uL (0.0-0.2); %Basophils 0.4 % (0.0-1.0); %Eosinophils 2.2 % (0.0-10.0); %Lymphocytes 34.7 % (21.0-51.0); %Neutrophils 55.3 % (42.0-75.0); Hematocrit 40.5 % (36.0-47.0); Hemoglobin 13.7 g/dL (12.0-16.0); Mean Corpuscular HGB CONC 33.8 g/dL (32.0-36.0); Mean Corpuscular Hemoglobin 29.7 pg (27.0-31.0); Mean Corpuscular Volume 87.7 fL (78.0-98.0); Mean Platelet Volume 12.2 fL (7.4-10.4); Platelet Count 298 10x3/uL (130-400); RBC Distribution Width 13.4 % (11.5-14.5); Red Blood Cell (RBC) Count 4.62 mill/uL (4.20-5.40)
[2024-04-20 08:16] LABS: ALT (SGPT) 16 U/L (8-55); AST (SGOT) 17 U/L (5-34); Albumin 3.6 g/dL (3.5-5.0); Alkaline Phosphatase 73 U/L (40-110); Anion Gap 17 mmol/L (10-20); BUN (Urea Nitrogen) 9 mg/dL (7.0-18.7); Bilirubin, Total 0.4 mg/dL (0.2-1.2); Calc. Creatinine Clearance 0 mL/min (70-130); Calcium 9.1 mg/dL (7.8-10.44); Carbon Dioxide 22 mmol/L (22-29); Chloride 105 mmol/L (98-107); Estimated GFR 99; Globulin 3.3 g/dL (2.4-3.5); Glucose 73 mg/dL (70-105); Potassium 3.5 mmol/L (3.5-5.1); Protein, Total 6.9 g/dL (6.0-8.3); Sodium 140 mmol/L (136-145)
[2024-04-20] MEDS ORDERED: Pantoprazole 40 MG VIAL ONE (08:37)
== END 2024-04-20 09:33 | disposition home or self-care (01) ==
LOC: ERS 07:18
DX: S70.02XA Contusion of left hip, initial encounter (principal); E10.649 Type 1 diabetes mellitus with hypoglycemia without coma; E10.40 Type 1 diabetes mellitus with diabetic neuropathy, unspecified; E03.9 Hypothyroidism, unspecified; F17.210 Nicotine dependence, cigarettes, uncomplicated; W19.XXXA Unspecified fall, initial encounter; Z79.899 Other long term (current) drug therapy
CPT/HCPCS: 72170; 80053; 85025; 96374; 96375; C9113; J2270; J2405

== ENCOUNTER 2024-08-06 15:29 | Emergency (ER) | payer BC ==
[2024-08-06 17:34] LABS: #Basophils 0.09 10x3/uL (0.0-0.2); %Basophils 1.1 % (0.0-1.0); %Eosinophils 3.1 % (0.0-10.0); %Lymphocytes 36.5 % (21.0-51.0); %Monocytes 8.9 % (0.0-10.0); Hematocrit 40.6 % (36.0-47.0); Hemoglobin 13.5 g/dL (12.0-16.0); Mean Corpuscular HGB CONC 33.3 g/dL (32.0-36.0); Mean Corpuscular Hemoglobin 29.2 pg (27.0-31.0); Mean Corpuscular Volume 87.9 fL (78.0-98.0); Platelet Count 261 10x3/uL (130-400); RBC Distribution Width 13.3 % (11.5-14.5); Red Blood Cell (RBC) Count 4.62 mill/uL (4.20-5.40)
[2024-08-06 17:47] LABS: BHCG - Serum Negative (NEGATIVE); Pregs Control Background? CLEAR/WHITE (CLR/WHITE); Pregs Control Bar Appear? YES (CONTROL BAR)
[2024-08-06 17:53] LABS: ALT (SGPT) 11 U/L (8-55); AST (SGOT) 11 U/L (5-34); Albumin 3.2 g/dL (3.5-5.0); Alkaline Phosphatase 70 U/L (40-110); Anion Gap 8 mmol/L (10-20); BUN (Urea Nitrogen) 10 mg/dL (7.0-18.7); Bilirubin, Total 0.3 mg/dL (0.2-1.2); Calc. Creatinine Clearance 0 mL/min (70-130); Calcium 8.6 mg/dL (7.8-10.44); Carbon Dioxide 23 mmol/L (22-29); Chloride 110 mmol/L (98-107); Estimated GFR 91; Globulin 2.7 g/dL (2.4-3.5); Glucose 235 mg/dL (70-105); Lipase 19 U/L (8-78); Potassium 4.1 mmol/L (3.5-5.1); Protein, Total 5.9 g/dL (6.0-8.3); Sodium 137 mmol/L (136-145); Troponin I 0.021 ng/mL (< 0.028)
[2024-08-06] MEDS ORDERED: Aspirin Chewable 81 MG TAB ONE (19:34)
== END 2024-08-06 21:37 | disposition home or self-care (01) ==
LOC: ERS 15:29
DX: J39.9 Disease of upper respiratory tract, unspecified (principal); B97.89 Other viral agents as the cause of diseases classified elsewhere; R07.89 Other chest pain; E10.40 Type 1 diabetes mellitus with diabetic neuropathy, unspecified; F17.210 Nicotine dependence, cigarettes, uncomplicated; Z55.6 Problems related to health literacy
CPT/HCPCS: 36415; 71045; 80053; 83690; 84484; 84703; 85025; 93005